=== PATIENT | female | born 1950 | race Caucasian/White ===

== ENCOUNTER 2020-04-06 14:51 | Emergency (ER) | payer OTHER ==
[~2020-04-06] VITALS: Ht 165.1 cm; Wt 97.1 kg
--- NOTE | ~2020-04-06 | P ---
[facility] [place] [address] PROCEDURE REPORT Name: RICARDA GARNER Room #: DEP [facility]#: [id number] Admission: 04/06/20 Attend Phys: Discharge: 04/06/20 Date of : 46 Report #: [id number] THIS REPORT FOR: cc: DIANNA - Deisy family physician/PCP DIANNA - No family physician/PCP Rian Kearney MD ~ CC: [facility] physician/PCP Lisa Martinez DATE OF SERVICE: 04/06/2020 WOUND CARE PROCEDURE NOTE PERSONAL PHYSICIAN: Vataff. CHIEF COMPLAINT: Right lower extremity hematoma. HISTORY OF PRESENT ILLNESS: This is a 69-year-old white female that we have been following at [facility] for approximately 2 weeks for hematoma on the medial right lower extremity calf region. This area had been initially evacuated approximately 2 weeks ago after the patient sustained a traumatic "bump" to her right leg while she was on Eliquis. The patient states she had no pain. The patient subsequently developed a hematoma requiring drainage. The patient now had a second hematoma that was over the anterior pretibial space that has started to spontaneously drain leading to the concern of the facility that it needed to have further drainage. Given the logistics, I was unable to go to the facility today, so the patient was brought to the Emergency Department for me to evaluate the patient and possibly drain the hematoma in the Emergency Department. The patient is agreeable to the debridement. Once again, has no associated pain. The patient denies also fevers or chills. The patient states she actually feels perfectly fine and is eager to get back to the skilled facility to resume her rehabilitation regimen. PREPROCEDURE DIAGNOSES: 1. Noninfected right lower extremity hematoma of the pretibial region. 2. Atrial fibrillation requiring anticoagulation. POSTPROCEDURE DIAGNOSES: 1. Noninfected right lower extremity hematoma of the pretibial region. 2. Atrial fibrillation requiring anticoagulation. DESCRIPTION OF PROCEDURE: After timeout was taken, verbal consent was obtained. The patient had evacuation of the right pretibial hematoma going through the spontaneous area of drainage using wall suction and a [employer] Media[employer] suction catheter. This was removed with significant amount of liquid hematoma as well as the area was irrigated and flushed with approximately 200 mL of saline to allow for [address] [address] PROCEDURE REPORT Name: RICARDA GARNER Room #: DEP [facility]#: [id number] Admission: 04/06/20 Attend Phys: Discharge: 04/06/20 Date of : 46 Report #: [id number] further irrigation. A total of 600 mL of hematoma was evacuated from the wall suction. No anesthesia was used given the patient has neuropathy and no associated pain. The patient tolerated the procedure quite well. Post-procedure, the patient had a saline moist packing placed within the anterior pretibial area as well as the right medial calf wound. This was then compressed with a Kerlix and Jae from toes to knee. The patient tolerated the procedure quite well. The patient will be returned back to her skilled facility where I will see her in 2 days and evaluate for further wound care orders. I have spoken with the food services director at the facility and told her to resume the wound care orders that we had previously started, which included packing the wounds with ____ moist gauze, covered with an ABD, Kerlix and Jae. We might possibly resume wound VAC therapy once I evaluate the patient in 2 days. The patient will be taken by transportation back to the facility in stable condition. By: [id number] Rian Kearney MD /nt
--- NOTE | ~2020-04-06 | EMS ---
[facility] [address] [place] [address] EMS Patient Care Report Name: RICARDA GARNER Room #: DEP [facility]#: [id number] Admission: 04/06/20 Attend Phys: Discharge: 04/06/20 Date of : 46 Report #: [id number] THIS REPORT FOR: //name// Report Transmitted: 04/06/2020 17:17 EMS Care Summary [facility] MED-ACT Incident [id number] @ 04/06/2020 14:02 Incident Location [address] [place] [address] Patient BALDOMERO MCKINNEY Female, 89 Years 1930-11-05 Patient Address [address] [place] [address] Patient History Hypertension (HTN),Hyperlipidemia,Hypothyroidism,Mild cognitive impairment, Patient Allergies Sulfa, Patient Medications ASA, Chief Complaint Mentation decline Disposition Transported No Lights/[place] Dispatch Reason Unconscious/Fainting Transported To [facility] Narrative M1140 was dispatched to the listed location for a code 1 syncope. Upon arrival to the facility, fire crew waited outside of the building due to their [address] [address] EMS Patient Care Report Name: RICARDA GARNER Room #: DEP [facility] [id number] Admission: 04/06/20 Attend Phys: Discharge: 04/06/20 Date of : 46 Report #: [id number] protocol. EMS continued in to the patient. On arrival to the patient staff stated that her mentation had been declining over the past couple days. Staff said that she has a cognitive disability but she had not been acting her normal . Staff stated that she had been having green and yellow discharge from her vagina and into her catheter. Staff stated that she had a fall back in January and broke her right shoulder and got shoulder surgery with "equipment." Staff said that she fell in March and broke it again. Doctors said that they removed the shoulder equipment and did not want to give that patient anymore surgery. Patient denied any chest pain, SOB, abd. pain, N/V/D, or right shoulder pain. When EMS would touch the patient she would scream out in pain. EMS attempted two IVs to give fluid for potential infection and high bG. Patient was very verbal when attempting IVs and would move extremities. Patients V/S were stable so only two IV attempts were made. Initial Vitals @14:27P: 118,SpO2: 78, @14:36P: 113,BP: 118/57,SpO2: 95, @14:21P: 116,R: 18,BP: 130/72,Pain: 0/10,GCS: 13,Temp: 98F,Glucose: 239,SpO2: 96,Revised Trauma: 12, @14:45P: 113,BP: 121/88,SpO2: 94, @14:27P: 113,SpO2: 96,[place] Suspected: false Assessments @14:15MENTAL:Confused,Person Oriented,SKIN:HEENT:Head/Face: No Abnormalities,LUNG SOUNDS:General: No Abnormalities,Left Upper: No Abnormalities,Right Upper: No Abnormalities,Left Lower: No Abnormalities,Right Lower: No Abnormalities,ABDOMEN:General: No Abnormalities,Left Upper: No Abnormalities,Right Upper: No Abnormalities,Left Lower: No Abnormalities,Right Lower: No Abnormalities,PELVIS//GI:Pelvis GUOther,EXTREMITIES:Right Arm: Other,Left Arm: No Abnormalities,PULSE:NEURO:No Abnormalities, Impression Altered Mental Status Procedures @14:2712-Lead ECGResponse: UnchangedSucceeded Timeline 14:00,Call Received 14:00,Psap Call 14:02,Dispatched 14:03,En Route 14:08,On Scene 14:14,At Patient 14:21,BP: 130/72 M,PULSE: 116,RR: 18 R,SPO2: 96 Ox,ETCO2: ,B,PAIN: [address] [address] EMS Patient Care Report Name: RICARDA GARNER [facility] [id number] Admission: 04/06/20 Attend Phys: Discharge: 04/06/20 Date of : 46 Report #: [id number] 0,GCS: 13, 14:27,BP: / M,PULSE: 118,RR: R,SPO2: 78 Ox,ETCO2: ,BG: ,PAIN: ,GCS: , 14:27,12-Lead ECG,Response: UnchangedSucceeded, 14:27,BP: / M,PULSE: 113,RR: R,SPO2: 96 Ox,ETCO2: ,BG: ,PAIN: ,GCS: , 14:35,Depart Scene 14:36,BP: 118/57 M,PULSE: 113,RR: R,SPO2: 95 Ox,ETCO2: ,BG: ,PAIN: ,GCS: , 14:45,BP: 121/88 M,PULSE: 113,RR: R,SPO2: 94 Ox,ETCO2: ,BG: ,PAIN: ,GCS: , 14:47,At Destination 15:15,Call Closed Disclaimer v1.1 Copyright 2020 [employer] This EMS Care Summary contains data elements from the applicable legal record (which may be displayed differently). It is designed to provide pertinent information for the following purposes: continuity of care, clinical quality, and state data reporting. The complete legal record is available to ED staff and administrators of the receiving hospital in ES's Patient Tracker. All data is provided "as is."
--- NOTE | ~2020-04-06 | EMS ---
[address] [address] EMS Patient Care Report Name: RICARDA GARNER Room #: REG LANIE Frances#: [id number] Admission: 04/06/20 Attend Phys: Discharge: Date of : 46 Report #: [id number] THIS REPORT FOR: //name// Report Transmitted: 04/06/2020 16:[address] [facility] MED-ACT Incident [id number] @ 04/06/2020 14:02 Incident Location [address] [place] [address] Patient BALDOMERO MCKINNEY Female, 89 Years 1930-11-05 Patient Address [address] [place] [address] Patient History Hypertension (HTN),Hyperlipidemia,Hypothyroidism,Mild cognitive impairment, Patient Allergies Sulfa, Patient Medications ASA, Chief Complaint Mentation decline Disposition Transported No Lights/[place] Dispatch Reason Unconscious/Fainting Transported To [facility] Narrative M1140 was dispatched to the listed location for a code 1 syncope. Upon arrival to the facility, fire crew waited outside of the building due to their [address] [address] EMS Patient Care Report Name: RICARDA GARNER Room #: REG [facility]#: [id number] Admission: 04/06/20 Attend Phys: Discharge: Date of : 46 Report #: [id number] protocol. EMS continued in to the patient. On arrival to the patient staff stated that her mentation had been declining over the past couple days. Staff said that she has a cognitive disability but she had not been acting her normal . Staff stated that she had been having green and yellow discharge from her vagina and into her catheter. Staff stated that she had a fall back in January and broke her right shoulder and got shoulder surgery with "equipment." Staff said that she fell in March and broke it again. Doctors said that they removed the shoulder equipment and did not want to give that patient anymore surgery. Patient denied any chest pain, SOB, abd. pain, N/V/D, or right shoulder pain. When EMS would touch the patient she would scream out in pain. EMS attempted two IVs to give fluid for potential infection and high bG. Patient was very verbal when attempting IVs and would move extremities. Patients V/S were stable so only two IV attempts were made. Initial Vitals @14:27P: 118,SpO2: 78, @14:36P: 113,BP: 118/57,SpO2: 95, @14:21P: 116,R: 18,BP: 130/72,Pain: 0/10,GCS: 13,Temp: 98F,Glucose: 239,SpO2: 96,Revised Trauma: 12, @14:45P: 113,BP: 121/88,SpO2: 94, @14:27P: 113,SpO2: 96,MD Suspected: false Assessments @14:15MENTAL:Confused,Person Oriented,SKIN:HEENT:Head/Face: No Abnormalities,LUNG SOUNDS:General: No Abnormalities,Left Upper: No Abnormalities,Right Upper: No Abnormalities,Left Lower: No Abnormalities,Right Lower: No Abnormalities,ABDOMEN:General: No Abnormalities,Left Upper: No Abnormalities,Right Upper: No Abnormalities,Left Lower: No Abnormalities,Right Lower: No Abnormalities,PELVIS//GI:Pelvis GUOther,EXTREMITIES:Right Arm: Other,Left Arm: No Abnormalities,PULSE:NEURO:No Abnormalities, Impression Altered Mental Status Procedures @14:2712-Lead ECGResponse: UnchangedSucceeded Timeline 14:00,Call Received 14:00,Psap Call 14:02,Dispatched 14:03,En Route 14:08,On Scene 14:14,At Patient 14:21,BP: 130/72 M,PULSE: 116,RR: 18 R,SPO2: 96 Ox,ETCO2: ,B,PAIN: [address] [place] [address] EMS Patient Care Report Name: RICARDA GARNER Room #: VICKIE Frances#: [id number] Admission: 04/06/20 Attend Phys: Discharge: Date of : 46 Report #: [id number] 0,GCS: 13, 14:27,BP: / M,PULSE: 118,RR: R,SPO2: 78 Ox,ETCO2: ,BG: ,PAIN: ,GCS: , 14:27,12-Lead ECG,Response: UnchangedSucceeded, 14:27,BP: / M,PULSE: 113,RR: R,SPO2: 96 Ox,ETCO2: ,BG: ,PAIN: ,GCS: , 14:35,Depart Scene 14:36,BP: 118/57 M,PULSE: 113,RR: R,SPO2: 95 Ox,ETCO2: ,BG: ,PAIN: ,GCS: , 14:45,BP: 121/88 M,PULSE: 113,RR: R,SPO2: 94 Ox,ETCO2: ,BG: ,PAIN: ,GCS: , 14:47,At Destination 15:15,Call Closed Disclaimer v1.1 Copyright 2020 [employer] This EMS Care Summary contains data elements from the applicable legal record (which may be displayed differently). It is designed to provide pertinent information for the following purposes: continuity of care, clinical quality, and state data reporting. The complete legal record is available to ED staff and administrators of the receiving hospital in [employer]'s Patient Tracker. All data is provided "as is."
[2020-04-06 17:55] VITALS: BP 135/65
== END 2020-04-06 17:57 | disposition home or self-care (01) ==
LOC: ER 14:51
DX: L08.89 Other specified local infections of the skin and subcutaneous tissue (principal); I10 Essential (primary) hypertension; E78.5 Hyperlipidemia, unspecified; I48.91 Unspecified atrial fibrillation; K21.9 Gastro-esophageal reflux disease without esophagitis; F41.1 Generalized anxiety disorder; Z98.890 Other specified postprocedural states; Z88.0 Allergy status to penicillin; Z91.013 Allergy to seafood; Z79.01 Long term (current) use of anticoagulants

== ENCOUNTER → 2020-06-13 | Emergency (ER) | payer OTHER ==
[~2020-06-13] VITALS: Ht 157.5 cm; Wt 97.1 kg
--- NOTE | ~2020-06-13 | EMS ---
[address] [address] EMS Patient Care Report Name: RICARDA GARNER Room #: REG LANIE Frances#: [id number] Admission: 06/13/20 Attend Phys: Discharge: Date of : 46 Report #: [id number] THIS REPORT FOR: //name// Report Transmitted: 06/13/2020 13:43 EMS Care Summary [facility] MED-ACT Incident [id number] @ 06/13/2020 11:36 Incident Location [address] [place] [address] Patient RICARDA GARNER Female, 69 Years 1950 Patient Address [address] [place] [address] Patient History Hypertension (HTN),Stroke/CVA,Hyperlipidemia,Gastro-Esophageal Reflux Disease (GERD),Cardiac Condition - Other,Urinary Tract Infection (UTI),Anxiety,Atrial Fibrillation,Anemia,Pressure Ulcer,Dysphagia, Patient Allergies Penicillin allergy, Patient Medications Spironolactone, Norvasc, Ferrous Sulfate, Buspirone, Levothyroxine, Potassium, Gabapentin, Atorvastatin, Melatonin, Clotrimazole, Doxycycline, Neurontin, Lasix, Oxycodone, Aspirin, Chief Complaint possible leg infection Disposition Transported No Lights/[place] Dispatch Reason Sick Person Transported To [address] [address] EMS Patient Care Report Name: RICARDA GARNER Room #: REG LANIE Frances#: [id number] Admission: 06/13/20 Attend Phys: Discharge: Date of : 46 Report #: [id number] Narrative Medic 1149 arrived on scene to find the patient resting comfortably in her bed. The patient was awoken by EMS and did not know why EMS was called. She said that she did not want to go to the hospital. EMS found a nurse and she informed EMS that the patient has been running a low-grade fever with a temp of around 100 today and that she has been more lethargic than usual. EMS obtained a temp of 98.1 multiple times. Staff informed EMS that they have not given medication to the patient today to lower her temp, nor has she taken her normal daily meds yet. Staff would like the patient to be seen in the ED for a possible infection to her leg and to see if her wounds have gone deeper into her leg. The patient had no complaints of pain. After EMS talked with the patient and assessed vitals, staff walked into the room and talked with the patient about being seen in the ED. The patient then agreed. EMS moved the patient to the cot via draw sheet. The patient was secured to the cot and moved to the ambulance for secondary assessment. The patient had no new complaints during secondary assessment. EMS established an IV and monitored the patient throughout transport. Upon arrival to the ED EMS gave report to ED staff. Medic 1149 clear. Initial Vitals @11:53P: 84,BP: 102/65,Glucose: 106, @11:58P: 82,BP: 112/67,SpO2: 91, @11:45P: 83,R: 16,BP: 98/61,Pain: 0/10,GCS: 15,Temp: 98.1F,SpO2: 96,Revised Trauma: 12, Assessments @11:43MENTAL:Other,Person Oriented,Place Oriented,Event Oriented,Time Oriented,SKIN:Hot,HEENT:Head/Face: No Abnormalities,LUNG SOUNDS:General: No Abnormalities,ABDOMEN:General: No Abnormalities,PELVIS//GI:EXTREMITIES:Right Leg: Other,Right Leg: Edema,Left Leg: Edema,Capillary Refill: Left Upper: < 2 Sec,Left Arm: No Abnormalities,Right Arm: No Abnormalities,PULSE:Radial: 2+ Normal,NEURO:No Abnormalities, Impression Skin infection Procedures @11:42Surgical Mask on PatientResponse: Unchanged@11:42ALS AssessmentResponse: UnchangedSucceeded@11:54Saline Lock 10cc (20 ga) Site: Hand-LeftResponse: UnchangedSucceeded Timeline 11:33,Call Received 11:33,Psap Call 11:36,Dispatched [address] [address] EMS Patient Care Report Name: RICARDA GARNER Room #: REG LAINE Frances#: [id number] Admission: 06/13/20 Attend Phys: Discharge: Date of : 46 Report #: [id number] 11:36,En Route 11:38,On Scene 11:41,At Patient 11:42,ALS Assessment,Response: UnchangedSucceeded, 11:42,Surgical Mask on Patient,Response: Unchanged 11:45,BP: 98/61 M,PULSE: 83,RR: 16 R,SPO2: 96 Ox,ETCO2: ,BG: ,PAIN: 0,GCS: 15, 11:53,BP: 102/65 M,PULSE: 84,RR: R,SPO2: Ox,ETCO2: ,B,PAIN: ,GCS: , 11:54,Saline Lock 10cc 20 ga Site: Hand-Left,Response: UnchangedSucceeded, 11:56,Depart Scene 11:58,BP: 112/67 M,PULSE: 82,RR: R,SPO2: 91 Ox,ETCO2: ,BG: ,PAIN: ,GCS: , 12:05,At Destination 12:25,Call Closed Disclaimer v1.1 Copyright 2020 [employer] This EMS Care Summary contains data elements from the applicable legal record (which may be displayed differently). It is designed to provide pertinent information for the following purposes: continuity of care, clinical quality, and state data reporting. The complete legal record is available to ED staff and administrators of the receiving hospital in [employer]'s Patient Tracker. All data is provided "as is."
[2020-06-13 12:54] LABS: ABSOLUTE NEUTROPHILS 13.1 thou/uL (1.4-8.2); BASOPHILS 0.6 % (0.0-2.0); EOSINOPHILS 0.2 % (0.0-3.0); HEMATOCRIT 32.9 % (37.0-47.0); HEMOGLOBIN 10.2 gm/dL (12.0-15.0); LYMPHOCYTES 5.6 % (24.0-44.0); MCH 26.9 pg (26.0-34.0); MCHC 31.1 g/dL (28.0-37.0); MCV 86.5 fL (80.0-100.0); MONOCYTES 6.1 % (1.0-8.0); PLATELET COUNT 453 thou/uL (150-400); POLYS 87.5 % (36.0-66.0); RBC 3.81 mil/uL (4.20-5.00); WBC 14.9 thou/uL (4.0-11.0)
[2020-06-13 12:58] LABS: CALCIUM 8.9 mg/dL (8.5-10.1); CREATININE 0.6 mg/dL (0.6-1.0)
[2020-06-13 13:03] LABS: ALBUMIN 2.4 g/dL (3.4-5.0); TOTAL BILIRUBIN 0.4 mg/dL (0.2-1.0); TOTAL PROTEIN 7.1 g/dL (6.4-8.2)
[2020-06-13 17:43] VITALS: BP 99/52
== END ==
LOC: ER 12:11
PROVIDERS: Nurse Practitioner
DX: S81.801A Unspecified open wound, right lower leg, initial encounter (principal); L03.115 Cellulitis of right lower limb; D72.829 Elevated white blood cell count, unspecified; I10 Essential (primary) hypertension; E78.5 Hyperlipidemia, unspecified; I48.91 Unspecified atrial fibrillation; K21.9 Gastro-esophageal reflux disease without esophagitis; Z88.0 Allergy status to penicillin; Z91.013 Allergy to seafood; X58.XXXA Exposure to other specified factors, initial encounter; Y93.89 Activity, other specified; Y92.89 Other specified places as the place of occurrence of the external cause; Y99.8 Other external cause status

== ENCOUNTER 2021-05-10 14:22 | Inpatient (IN) | payer OTHER ==
[~2021-05-10] VITALS: Ht 162.6 cm; Wt 71.9 kg
[2021-05-10 14:22] VITALS: BP 143/81
[2021-05-10 14:57] LABS: BASOPHILS 0.4 % (0.0-2.0); EOSINOPHILS 0.9 % (0.0-3.0); HEMATOCRIT 39.6 % (37.0-47.0); LYMPHOCYTES 4.1 % (24.0-44.0); MCH 30.3 pg (26.0-34.0); MCHC 32.7 g/dL (28.0-37.0); MCV 92.8 fL (80.0-100.0); MONOCYTES 8.6 % (1.0-8.0); PLATELET COUNT 385 thou/uL (150-400); RBC 4.27 mil/uL (4.20-5.00); RDW 14.1 % (10.5-14.5); WBC 16.3 thou/uL (4.0-11.0)
[2021-05-10 15:15] LABS: APTT 54.7 Seconds (24.5-32.8); INR 3.57; PROTIME 36.6 Seconds (10.5-12.1)
[2021-05-10 15:21] LABS: CALCIUM 9.2 mg/dL (8.5-10.1); CREATININE 0.7 mg/dL (0.6-1.0); POTASSIUM 5.2 mmol/L (3.5-5.1)
[2021-05-10 15:26] LABS: ALBUMIN 3.1 g/dL (3.4-5.0); TOTAL BILIRUBIN 0.4 mg/dL (0.2-1.0); TOTAL PROTEIN 7.5 g/dL (6.4-8.2)
[2021-05-10 17:17] VITALS: BP 102/52
--- NOTE | 2021-05-10 19:19 | NUR ---
pt arrived to floor via stretcher, alert and oriented x4 with extreme episodes of agitation and anxiety. Complains of pain, medicated per orders. Drainage and swelling to bilateral lower extremities. Patient oriented to the room, call harvey and belongings in reach. Educated on the unit processes. All questions answered at this time.
[2021-05-10 20:28] VITALS: BP 117/68
--- NOTE | 2021-05-11 03:04 | NUR ---
PT CARE ASSUMED WITH PT IN BED AT 1900.PT IS A/O X4.PT IS ON BEDREST AND USES A W/C AT HOME AND LIVES ALONE PER PT.PT IS ON ROOM AIR.ADMISSION DONE ,PICTURES TAKEN AND TORREZ INSERTED PER DR CHIN.PT VERY ANXIOUS AND AGITATED AND CRYING .PT REORIENTED AND PLAN OF CARE AND MEDS EXPLAINED TO PT.WOUND DRESSING DONE AND WRAPPED .PT ADMITTED WITH C/O BLE CELLULITIS PAINFUL,RED AND DRAINING.IV ACCESS ON LT AC SL.WILL CONTINUE TO MONITOR PER POC
[2021-05-11 05:07] LABS: ABSOLUTE NEUTROPHILS 11.5 thou/uL (1.4-8.2); BASOPHILS 0.5 % (0.0-2.0); EOSINOPHILS 2.3 % (0.0-3.0); HEMATOCRIT 32.6 % (37.0-47.0); LYMPHOCYTES 4.7 % (24.0-44.0); MCH 30.8 pg (26.0-34.0); MCHC 33.4 g/dL (28.0-37.0); MCV 92.2 fL (80.0-100.0); MONOCYTES 11.4 % (1.0-8.0); PLATELET COUNT 354 thou/uL (150-400); POLYS 81.1 % (36.0-66.0); RBC 3.54 mil/uL (4.20-5.00); RDW 13.8 % (10.5-14.5); WBC 14.2 thou/uL (4.0-11.0)
[2021-05-11 05:15] LABS: HEMOGLOBIN 10.9 gm/dL (12.0-15.0)
[2021-05-11 05:31] LABS: CALCIUM 8.3 mg/dL (8.5-10.1); CREATININE 0.6 mg/dL (0.6-1.0)
[2021-05-11 05:32] LABS: MAGNESIUM 1.7 mg/dL (1.8-2.4)
[2021-05-11 05:53] LABS: POTASSIUM 3.7 mmol/L (3.5-5.1)
[2021-05-11 07:55] VITALS: BP 101/57
--- NOTE | 2021-05-11 08:33 | NUR ---
Chart review, amaya visited with lilly at bedside, she was getting ready to eat breakfast, offered to come back and she said it was ok to visit now. Intro to cm and dcp. Live home alone, independent, manage own medication. Have new walk in shower and shower bench. have walker and wheel chair. have support from my brothers and sisters. cook. have life alert necklace. do not currently drive but going to start drive again. hh in past but can not remember who it was with. Been to [facility] in past per lilly. She is agree able to hh or rehab in needed at dc but would prefer going home. Will cont following as needed for dc needs.
[2021-05-11] MEDS ORDERED: LEVOTHYROXINE50 MC1 PO (10:03)
[2021-05-11] MEDS ORDERED: APAP W/CODEINE1 TA2 PO (10:04)
[2021-05-11] MEDS ORDERED: WARFARIN SODIUM1 MG PO (10:05)
[2021-05-11] MEDS ORDERED: DULOXETINE HCL30 MG PO (10:06)
[2021-05-11] MEDS ORDERED: SPIRONOLACTONE25 MG PO (10:06)
[2021-05-11] MEDS ORDERED: FUROSEMIDE 40 M40 MG PO (10:06)
[2021-05-11] MEDS ORDERED: GABAPENTIN100 MG PO (10:07)
[2021-05-11] MEDS ORDERED: KLOR-CON M2020 MEQ PO (10:16)
[2021-05-11] MEDS ORDERED: NORVASC5 M1 PO (10:16)
[2021-05-11] MEDS ORDERED: TRAZODONE HCL100 MG PO (10:17)
[2021-05-11] MEDS ORDERED: LIPITOR40 MG PO (10:17)
[2021-05-11] MEDS ORDERED: VITAMIN C1000 MG PO (10:31)
[2021-05-11] MEDS ORDERED: MELATONIN5 M4 PO (10:31)
[2021-05-11] MEDS ORDERED: VOLTAREN ARTHRI20 GM TOP (10:32)
[2021-05-11] MEDS ORDERED: WARFARIN SODIUM5 MG PO (10:47)
--- NOTE | 2021-05-11 11:11 | NUR ---
ASSUMED PT CARE THIS AM. PT A&OX3, ABLE TO MAKE NEEDS KNOWN. PATIENT REPORTS PAIN IN THE LEFT SIDE OF THE PATIENTS NECK, RESPONDS WELL TO PAIN MEDICATION GIVEN PER EMAR. PATIENT ANXIOUS WITH CARES. TORREZ CATHETER IN PLACE, CALL LIGHT WITHIN REACH. PATIENT IS ON ROOM AIR. DRESSINGS TO LOWER EXTREMETIES ARE INTACT. IV REMAINS PATENT. MEDICATIONS TAKEN WITHOUT ISSUE. PATIENT REPORTS NO NUMBNESS OR TINGLING. FALL PRECAUTIONS ARE IN PLACE, CALL LIGHT WITHIN REACH.
[2021-05-11 17:36] VITALS: BP 99/58
[2021-05-11 20:12] VITALS: BP 102/69
[2021-05-12 01:55] LABS: HEMATOCRIT 31.2 % (37.0-47.0); HEMOGLOBIN 10.3 gm/dL (12.0-15.0); MCH 30.6 pg (26.0-34.0); MCV 92.9 fL (80.0-100.0); RBC 3.35 mil/uL (4.20-5.00); RDW 14.2 % (10.5-14.5); WBC 9.8 thou/uL (4.0-11.0)
[2021-05-12 02:01] LABS: CALCIUM 8.1 mg/dL (8.5-10.1); CREATININE 0.7 mg/dL (0.6-1.0); POTASSIUM 3.6 mmol/L (3.5-5.1)
[2021-05-12 02:04] LABS: INR 2.42; PROTIME 25.3 Seconds (10.5-12.1)
--- NOTE | 2021-05-12 03:46 | NUR ---
ASSUMED PT CARE AT 1999. PT IS ALERT AND ORIENTED X4. DRS ON BLE IS C/D/I WITH NO SIGN OF DRAINAE, PT CAN BE REALLY ANXIOUS AND YELLS OUT IN THE HALLWAY EVEN AFTER BEING EDUCATED ON THE USE OF CALL LIGHT. PAIN WAS MANAGED BY PRN MEDS. PT TOLERATING RA. PT HAS TORREZ IN PLACE WHICH IS PATENT. NO VISIBLE SIGN OF DISTRESS NOTED. FALL PRECAUTIONS IN PLACE. WILL CONTINUE TO MONITOR.
--- NOTE | 2021-05-12 14:43 | NUR ---
Discussed during los with the hospitalist, possible will need skilled rehab at dc. Kimberlee had mentioned [facility] if she needed rehab. Cm spoke with her sister Shantel via phone call, and she agrees if needed [facility] would be fine if they have openings. Noted per therapy on going assessment, post-acute or home health. Will cont. following as needed for dc needs.
--- NOTE | 2021-05-12 15:05 | NUR ---
ASSUMED CARE OF PATIENT AT SHIFT CHANGE. ASSESSMENT CHARTED. MEDICATIONS ADMINISTERED PER EMAR. VSS. PATIENT IS ALERT TO SELF, TIME & PLACE AND GOES IN OUT OF CONFUSION PERTAINING TO SITUATION. PATIENT HAS BEEN VERY ANXIOUS AND TEARFUL THROUGHOUT ENTIRE SHIFT. PRN LORAZEPAM ADMINISTERED; PATIENT NOTED BEING CALM AND NAPPING AFTER ADMINISTRATION. PATIENT WAS ABLE TO TOLERATE WOUND CARE CHANGE BECAUSE OF THE MEDICATIONS GIVEN PRIOR (NORCO & ATIVAN). TORREZ REMAINS IN PLACE AND PATENT; PATIENT STILL NOT TOLERATING WORKING WITH PT/OT. VOICING CONSTANT PAIN WHILE AWAKE. INFECTIOUS DISEASE DOCTOR ROUNDED ON PATIENT; PATIENT WILL CONTINUE ON ABX THX. LOWER EXTREMITIES ELEVATED; FREQUENT CHECKS & FREQUENT REPOSITIONING ON PATIENT. PATIENT USING CALL LIGHT BUT ALSO SCREAMING AND CRYING FOR HELP. PROVIDER UPDATED ON PATIENT STATUS. WILL CONTINUE TO MONITOR AND FOLLOW PLAN OF CARE
[2021-05-12 15:29] VITALS: BP 99/49
[2021-05-12 21:21] VITALS: BP 105/46
--- NOTE | 2021-05-13 03:47 | NUR ---
ASSUMED CARE OF PT AT SHIFT CHANGE. PT WAS DROWSY THIS SHIFT BUT IS ORIENTED X4. PT DENIED PAIN, NAUSEA OR SOA. ASSESSMENT CHARTED. PT TOOK HS MEDS WHOLE WITH WATER. VSS AND NO S/S OF ACUTE DISTRESS. WILL CONTINUE TO MONITOR FOR CHANGES.
[2021-05-13 05:57] LABS: HEMATOCRIT 31.9 % (37.0-47.0); HEMOGLOBIN 10.5 gm/dL (12.0-15.0); MCH 30.9 pg (26.0-34.0); MCHC 33.1 g/dL (28.0-37.0); MCV 93.4 fL (80.0-100.0); RBC 3.41 mil/uL (4.20-5.00); RDW 14.2 % (10.5-14.5); WBC 7.4 thou/uL (4.0-11.0)
[2021-05-13 06:21] LABS: INR 1.45; PROTIME 15.5 Seconds (10.5-12.1)
[2021-05-13 06:23] LABS: CALCIUM 8.5 mg/dL (8.5-10.1); CREATININE 0.6 mg/dL (0.6-1.0); POTASSIUM 3.5 mmol/L (3.5-5.1)
[2021-05-13 07:16] VITALS: BP 112/68
[2021-05-13 15:45] VITALS: BP 115/71
--- NOTE | 2021-05-13 18:11 | NUR ---
ASSUMED CARE OF PATIENT AT SHIFT CHANGE. PATIENT AWOKE AT APPROX. 0900 CRYING AND DEMANDING PAIN MEDICATION. PATIENT REMAINS A&OX3-4 WITH FORGETFULNESS & CONFUSION. PATIENT REPOSITIONED FREQUENTLY AND GIVEN PRN PAIN MEDS Q4HRS WELL VOLTEREN CREAM. PATIENT IS VERY ANXOIUS, DR. YESENIA BULLARD HAS NOT ROUNDED ON PATIENT; PROVIDER ORDERED PRN HALDOL FOR AGITATION. WOUND CARE COMPLETE AT 1500. BLE ELEVATED. FALL PRECAUTIONS IN PLACE. WILL CONTINUE TO MONITOR AND FOLLOW PLAN OF CARE
[2021-05-13 20:12] VITALS: BP 94/63
--- NOTE | 2021-05-14 03:48 | NUR ---
Assumed pt care at 1900. A/OX4,anxious/restless and crying on initial encounter but calm down later with 1:1 reassurance. VSS. C/o pain to BLE,medicated with Franklin with relief reported. IV on LAC infiltrated,new IV inserted on LFA with one attempt. DSGs to BLE C/D/I,immobilized on pillows. Charles patent to DD with yellow urine noted. Resting quietly w/o any distress noted,will continue to monitor pt. Fall precautions in place
[2021-05-14 05:45] LABS: HEMATOCRIT 32.3 % (37.0-47.0); HEMOGLOBIN 10.5 gm/dL (12.0-15.0); MCH 30.1 pg (26.0-34.0); MCHC 32.4 g/dL (28.0-37.0); MCV 92.9 fL (80.0-100.0); RBC 3.48 mil/uL (4.20-5.00); WBC 6.3 thou/uL (4.0-11.0)
[2021-05-14 05:50] LABS: CALCIUM 8.7 mg/dL (8.5-10.1); CREATININE 0.7 mg/dL (0.6-1.0); POTASSIUM 3.7 mmol/L (3.5-5.1)
[2021-05-14 05:53] LABS: INR 1.23; PROTIME 13.3 Seconds (10.5-12.1)
[2021-05-14 07:43] VITALS: BP 101/56
--- NOTE | 2021-05-14 14:50 | NUR ---
INITIALLY THIS AM WAS PAYMENT COLLECTOR LIGHT Q 5-10 MINUTES WITH MULTIPLE REQUESTS-RANG FOR PAIN MEDICATION 4 TIMES IN 20 MINUTE PERIOD DESPITE BEING INFORMED RN WAS WITH A PT WHO HAD ELEVATED GL-SOCKIUERH-[id number] MOOD-ASKING TO BE MOVED "3-4 INCHES" OVER IN BED AND REQUIRED SEVERAL ALTERNATIVE MENU CHOICES AND MULTIPLE CALLS TO KITCHEN WAS UNHAPPY WITH BREAKFAST PROVIDED. REFUSES TO GET UP OUT OF BED DESPITE PROMPTING. TORREZ CATH PATENT DRAINING CLEAR YELLOW URINE. NORCO 5/325 MG GIVEN PO PRN AT 0930 AND REPEATED AT 1400 PER REQUEST FOR BILAT LE PAIN RATED A 6 ON 1-10 SCALE. APPETTITE IS GOOD-LUNGS CLEAR-NO COUGH OR SOA NOTED OR REPORTED, BS ACTIVE X4.
[2021-05-14 17:03] VITALS: BP 113/65
[2021-05-14 20:10] VITALS: BP 135/70
--- NOTE | 2021-05-15 03:49 | NUR ---
ASSUMED PT CARE AT 1910. PT IS ALERT AND ORIENTED X4 . PT IS PLEASANT AND COOPERATIVE. PT REQUESTED TO BE GIVEN SCHEDULED MEDS LATE. PT C/O PAIN WHICH WAS MANAGED BY PRN PAIN MEDS. PT HAS DRS TO BLE WHICH ARE C/D/I. PT DID NOT VERBALIZE ANY OTHER CONCERNS AND NO VISIBLE SIGN OF DISTRESS WAS NOTED. VS ARE WITHIN NORMAL RANGE. TORREZ IS IN PLACE. FALL PRECAUTIONS IN PLACE. ESTEPHANIA CONTINUE TO MONITOR.
[2021-05-15 05:52] LABS: CALCIUM 8.7 mg/dL (8.5-10.1); CREATININE 0.6 mg/dL (0.6-1.0); POTASSIUM 3.9 mmol/L (3.5-5.1)
[2021-05-15 05:55] LABS: INR 1.14; PROTIME 12.4 Seconds (10.5-12.1)
[2021-05-15 06:03] LABS: HEMATOCRIT 31.9 % (37.0-47.0); HEMOGLOBIN 10.6 gm/dL (12.0-15.0); MCH 30.8 pg (26.0-34.0); MCHC 33.2 g/dL (28.0-37.0); RBC 3.43 mil/uL (4.20-5.00); WBC 5.9 thou/uL (4.0-11.0)
[2021-05-15 08:29] VITALS: BP 100/56
--- NOTE | 2021-05-15 16:04 | NUR ---
Returned phone call to her sister ching. She had question about if she was going to need rehab, if she was seen by royer, and lilly said she wants to go to [facility] rehab per ching. Education that would pass on information to CM team social work and bedside nurse. Cm education with sister that [facility] has acute rehab if that's the level of rehab she could benefit from prior to dc home.
--- NOTE | 2021-05-15 16:38 | NUR ---
5N TO BE CONSULTED FOR ASSESSMENT FOR POSSIBLE ADMISSION. DR. PATTERSON CONSULTED RELATED TO ANXIETY. SHE ATTEMPTED TO VISIT WITH PT BUT PT WASN'T RECEPTIVE. SHE WILL VISIT AGAIN TOMORROW. PT'S DTR UPDATED. CM FOLLOWING REGARDING DC PLANNING.
[2021-05-15 19:50] VITALS: BP 124/69
--- NOTE | 2021-05-15 20:19 | NUR ---
PATIENT ALERT/ORIENTED X2-3. FORGETFUL AT TIMES. HAS MOMENTS OF ANXIETY. SHE WILL PUSH HER CALL LIGHT AND IF NOT ANSWERED WITHIN 30 SECONDS APPROXIMATELY SHE WILL START SCREAMING AND CRYING. SETTLES DOWN QUICKLY ONCE ENTERING THE ROOM. UPDATED HER SISTER (MATT) ON PATIENT STATUS, STATES THAT SHE HAS STRUGGLED WITH ANXIETY AND THIS IS NOT NEW FOR HER. DRESSING CHANGES DONE TO BILATERAL LOWER EXTREMITIES. BOTH DRESSINGS SATURATED IN BLOOD AND VERY PAINFUL FOR THE PATIENT. UPDATED DR. FELIZ ON WOUND STATUS. WOUND CARE DOCTOR ROUNDED. ORDERS FOR IV PAIN MEDICATIONS FOR DRESSING CHANGES. WILL NEED PICTURES TAKEN WITH NEXT DRESSING CHANGE. THERAPY WORKED WITH PATIENT. PLAN TO DISCHARGE TO REHAB WHEN MEDICALLY READY.
--- NOTE | 2021-05-16 05:04 | NUR ---
ASSUMED PT CARE THIS EVENING. PT IS FRUSTRATED AND ANXIOUS ABOUT WOUND CARE TO BLE; AND DOESS NOT THINK THE WOUNDS ARE HEALING. PT REQUESTE FOR PM MEDS BE GIVEN AT 2200. PT YELLS AND CRIES EVEN AFTER CALL LIGHT HAS BEEN ANSWERED AND NEEDS HAS BEEN MET. PT HAS DRSG TO BLE WHICH ARE C/D/I. FFOLEY IS IN PLACE. PT TOLERATING RA. FALL PRECAUTIONS IN PLACE. WILL CONTINUE TO MONITOR.
[2021-05-16 05:49] LABS: HEMATOCRIT 32.1 % (37.0-47.0); HEMOGLOBIN 10.5 gm/dL (12.0-15.0); MCH 29.9 pg (26.0-34.0); MCHC 32.6 g/dL (28.0-37.0); MCV 91.7 fL (80.0-100.0); RBC 3.51 mil/uL (4.20-5.00); RDW 14.4 % (10.5-14.5); WBC 8.7 thou/uL (4.0-11.0)
[2021-05-16 05:58] LABS: INR 1.22; PROTIME 13.2 Seconds (10.5-12.1)
[2021-05-16 06:16] LABS: CALCIUM 8.4 mg/dL (8.5-10.1); CREATININE 0.5 mg/dL (0.6-1.0); POTASSIUM 3.8 mmol/L (3.5-5.1)
[2021-05-16 07:52] VITALS: BP 119/58
--- NOTE | 2021-05-16 11:18 | NUR ---
5N CONSULT RECEIVED. Pt SEEN BY REAGAN ALMONTE NP. PER REAGAN, Pt FIRMLY STATED THAT SHE WANTED TO GO TO [facility] FOR REHAB. CASE MGMT NOTIFIED. 5N WILL REMAIN AVAILABLE REHAB OPTION IF Pt APPROPRIATE AND AGREEABLE.
--- NOTE | 2021-05-16 11:32 | NUR ---
5N LIAISON VISITED WITH PT AND SHE INDICATED THAT SHE WAS ANNOYED THAT SHE WAS VISITING SHE WANTED TO GO TO [facility] ACUTE REH[facility]. CM CALLED [facility] AND SPOKE WITH RICARDA IN ADMISSIONS THERE. CM FAXED REFERRAL FOR THEM TO REVIEW FOR POSSIBLE ADMISSION. CM INDICATED THAT PT IS LIKELY DC READY TODAY. CM AWAITING RESPONSE.
--- NOTE | 2021-05-16 17:13 | NUR ---
ASSUMED PT CARE THIS AM. PT A&OX3-4 THIS SHIFT. PATIENT MAKES SOME NEEDS KNOWN, BUT WILL YELL OUT AT STAFF WITHOUT CALLING. DRESSINGS CHANGED, HOSPITLAIST AND WOUND CARE TEAM OBSERVED WOUNDS THIS DAY. PATIENT REMAINS CONTINENT. PAITENT IS ON ROOM AIR. PATIENT UP WITH ASSIST. MEDICATIONS TAKEN WITHOUT ISSUE. FALL PRECAUTIONS ARE IN PLACE, CALL LIGHT WITHIN REACH.
[2021-05-16 19:39] VITALS: BP 121/76
[2021-05-16 19:59] VITALS: BP 158/66
--- NOTE | 2021-05-17 03:58 | NUR ---
Pt. rested quietly during the night when checked on during frequent rounds. She will yell at times when she needs something. Po pain med given for c/o bilateral lower leg pain (see emar) with some relief noted. Bed alarm is on.
[2021-05-17 04:59] LABS: HEMATOCRIT 32.6 % (37.0-47.0); HEMOGLOBIN 10.7 gm/dL (12.0-15.0); MCH 30.2 pg (26.0-34.0); MCHC 32.9 g/dL (28.0-37.0); MCV 91.6 fL (80.0-100.0); RBC 3.56 mil/uL (4.20-5.00); RDW 13.8 % (10.5-14.5); WBC 11.5 thou/uL (4.0-11.0)
[2021-05-17 05:24] LABS: CALCIUM 8.7 mg/dL (8.5-10.1); CREATININE 0.5 mg/dL (0.6-1.0); POTASSIUM 3.8 mmol/L (3.5-5.1)
[2021-05-17 05:34] LABS: INR 1.12; PROTIME 12.1 Seconds (10.5-12.1)
[2021-05-17 07:36] VITALS: BP 102/64
--- NOTE | 2021-05-17 11:25 | NUR ---
Nutrition: Pt seen for LOS. Admitted with BLE cellulitis, venous insufficiency. PMH reviewed. Pt reports UBW 170# and denies weight loss. Recent weight of 158# per pt is error. RECommend when pt out of bed, zero and re-weigh. PO intake is fair, averaging about 40% of meals. Pt able to order meals and tries to eat protein foods first. Agreeable to ensure enlive daily to assist with wounds and due to suboptimal intake. On B12 supplementation. Plan D/C to facility. Consider low nutrition risk with interventions in place.
[2021-05-17] MEDS ORDERED: HYDROCODON-ACE1 EAC7 PO (13:37)
[2021-05-17] MEDS ORDERED: CEPHALEXIN500 MG PO (13:38)
--- NOTE | 2021-05-17 14:39 | NUR ---
CARE TEAM INDICATED THAT PT IS MEDICALLY STABLE TO DC TO 5N ACUTE REHAB THIS DAY. PT IS AWARE AND AGREEABLE. CM NOTIFIED PT'S SISTER OBEY AT . PT TO DC TO ROOM 511 ON 5N. NO OTHER CM INTERVENTION INDICATED. CASE CLOSED.
--- NOTE | 2021-05-17 15:12 | NUR ---
TOOK ON CARE OF PT AROUND 0700. PT CONTINUED TO REMAIN EXTREMELY ANXIOUS THROUHGOUT THE DAY. CONSOLED HER CONSISTENTLY AND ATTEMPTED TO CONTROL PAIN WITH ORAL AND IV MEDICATION. PT HAS EXTREME ANXIETY AND UNRELEIVED BY EDUCATION AND CONSTANT REASSUREMENT. GAVE HALDOL PRN 1X WITH ADEQUATE STRESS RELIEF, ALLOWING HER TO REST. PATIENTS VITALS WERE STABLE THROUGHOUT THE DAY. ATTEMPTED TO ALLOW WOUND CARE TO VIEW BLE CELLULITIS BUT WAS UNREACHABLE. DRESSING CHANGES BILATERALLY AROUN 1400, LEFT LEG WAS PICTURED BUT WAS UNABLE TO PHOTOGRAPH R DUE TO CAMERA MALFUNCTIONS AND NO ALTERNATE. TRANSFERRING TO REHAB NOW.
--- NOTE | 2021-05-18 08:50 | HC ---
[facility] [place] [address] [place] [address] CONSULTATION Name: RICARDA GARNER Room #: 459-P [facility] IN M.R.#: [id number] Admission: 05/10/21 Attend Phys: Sebas Dumont MD Discharge: 05/17/21 Date of : 46 Report #: [id number] THIS REPORT FOR: cc: Neil Block MD, Scott C. MD Stephens, Thad A. MD ~ DATE OF SERVICE: 05/11/2021 WOUND CARE CONSULTATION PERSONAL PHYSICIAN: Neil Block. CHIEF COMPLAINT: Bilateral lower extremity cellulitis. HISTORY OF PRESENT ILLNESS: This is a 70-year-old white female, who was admitted through the Emergency Department for increasing redness, swelling and drainage from her lower extremities for the past 2 weeks. The patient states the swelling and redness has gotten so painful that she came to the Emergency Department to be admitted. The patient denies fevers or chills. The patient denies any other associated wounds. The patient states she has had swelling in her legs over the past several months, but nothing ___ like this. The patient denies any other associated wounds at this time. PAST MEDICAL HISTORY: Significant for hypertension, hyperlipidemia, atrial fibrillation, autoimmune thyroiditis, anxiety. CURRENT MEDICATIONS: Multiple, I reviewed the patient's medication list. DRUG ALLERGIES: PENICILLIN. SOCIAL HISTORY: The patient denies tobacco use. Drinks alcohol socially. Lives independently. FAMILY HISTORY: Not pertinent to current medical condition. REVIEW OF SYSTEMS: CONSTITUTIONAL: The patient denies fevers, chills. NEUROLOGIC: The patient has overall generalized weakness, but no isolated weakness in arms or legs. EYES: No complaints. EARS, NOSE AND THROAT: No complaints. CARDIAC: The patient has no chest pain or palpitations, but does have chronic lower extremity edema, worse in the past several weeks. RESPIRATORY: The patient denies shortness of breath, cough, wheezes. GASTROINTESTINAL: The patient denies nausea, vomiting, abdominal pain. GENITOURINARY: The patient denies urgency or frequency. [facility] [address] [place] [address] CONSULTATION Name: RICARDA GARNER Room #: 459-P [facility] IN M.R.#: [id number] Admission: 05/10/21 Attend Phys: Sebas Dumont MD Discharge: 05/17/21 Date of : 46 Report #: [id number] MUSCULOSKELETAL: No complaints. SKIN: There are multiple venous leg ulcers, which are superficial in bilateral lower extremities with associated cellulitis. PHYSICAL EXAMINATION: VITAL SIGNS: Temperature 37.1, pulse 104, respiration rate 19, BP 102/69. GENERAL: This is an alert and oriented x3, white female who is in moderate distress secondary to pain. HEENT: Normocephalic, atraumatic. Mucous membranes are dry. Pupils are round. Sclerae white. NECK: Without JVD. LUNGS: Clear. HEART: Regular. ABDOMEN: Soft, nontender. EXTREMITIES: The patient has 3+ edema bilateral lower extremities with multiple superficial ulcerations, all of which are weeping serous fluid, but no significant odor. There is increased erythema, warmth and tenderness. Distal pulses are intact. There is exquisite tenderness to palpation. Bilateral heels are intact. NEUROLOGIC: The patient is grossly intact. Motor and sensory are grossly intact. LABORATORY DATA: White count 9.8, hemoglobin 10.3. Sed rate 43. BUN 21, creatinine 0.7, and albumin 3.1. IMPRESSION: 1. Bilateral lower extremity cellulitis. 2. Bilateral lower extremity venous insufficiency with edema and multiple superficial ulcerations. 3. Generalized debility. 4. Protein calorie malnutrition -- moderate with albumin 3.1. 5. Nausea. PLAN: IV antibiotics had already been started for this patient. We will start morphine, Silvadene cream to both legs to help with the pain control. Cover this with Xeroform, ABD, Kerlix and Jae for control of edema. We will have the patient elevate her legs as much as possible. We will utilize physical and occupational therapies as the patient is able. We will make sure we maximize the patient's oral protein supplementation for healing. We will continue all other current medications. Appreciate ability to consult. <ELECTRONICALLY SIGNED> By: Rian Kearney MD 05/18/21 0850 [id number] Rian Kearney MD /nt
== END 2021-05-17 15:44 | DRG 872 ==
LOC: ER 14:22 → 4W 18:00 → EROBS 18:00 → 4W 05-17 15:44
PROVIDERS: Nurse Practitioner; Nurse Practitioner Family; ADMIT Hospitalist; ATTEND Hospitalist
DX: A41.9 Sepsis, unspecified organism (principal); L03.115 Cellulitis of right lower limb; L97.929 Non-pressure chronic ulcer of unspecified part of left lower leg with unspecified severity; L97.919 Non-pressure chronic ulcer of unspecified part of right lower leg with unspecified severity; E44.0 Moderate protein-calorie malnutrition; I69.354 Hemiplegia and hemiparesis following cerebral infarction affecting left non-dominant side; L03.116 Cellulitis of left lower limb; I10 Essential (primary) hypertension; I48.91 Unspecified atrial fibrillation; E78.5 Hyperlipidemia, unspecified; K21.9 Gastro-esophageal reflux disease without esophagitis; F41.1 Generalized anxiety disorder; E03.9 Hypothyroidism, unspecified; I89.0 Lymphedema, not elsewhere classified; E87.5 Hyperkalemia; R53.81 Other malaise; I87.2 Venous insufficiency (chronic) (peripheral); I87.8 Other specified disorders of veins; Z60.2 Problems related to living alone; E53.8 Deficiency of other specified B group vitamins; Z20.822 Contact with and (suspected) exposure to COVID-19; R41.0 Disorientation, unspecified; K59.00 Constipation, unspecified; B95.62 Methicillin resistant Staphylococcus aureus infection as the cause of diseases classified elsewhere; F32.9 Major depressive disorder, single episode, unspecified; Z79.899 Other long term (current) drug therapy; Z99.3 Dependence on wheelchair; Z98.49 Cataract extraction status, unspecified eye; Z88.0 Allergy status to penicillin; Z91.013 Allergy to seafood; I69.320 Aphasia following cerebral infarction; Z68.27 Body mass index [BMI] 27.0-27.9, adult; Z79.01 Long term (current) use of anticoagulants
CPT/HCPCS: 10040

== ENCOUNTER 2021-05-17 11:36 | Inpatient (IN) | payer OTHER ==
[~2021-05-17] VITALS: Ht 162.6 cm; Wt 70.8 kg
[~2021-05-17 11:36] MED LIST: APAP W/CODEINE1 TA2 PO; DULOXETINE HCL30 MG PO; FUROSEMIDE 40 M40 MG PO; GABAPENTIN100 MG PO; KLOR-CON M2020 MEQ PO; LEVOTHYROXINE50 MC1 PO; LIPITOR40 MG PO; MELATONIN5 M4 PO; NORVASC5 M1 PO; SPIRONOLACTONE25 MG PO; TRAZODONE HCL100 MG PO; VITAMIN C1000 MG PO; VOLTAREN ARTHRI20 GM TOP; WARFARIN SODIUM1 MG PO; WARFARIN SODIUM5 MG PO
[2021-05-17] MEDS ORDERED: HYDROCODON-ACE1 EAC7 PO (13:37)
[2021-05-17] MEDS ORDERED: CEPHALEXIN500 MG PO (13:38)
--- NOTE | 2021-05-17 17:17 | NUR ---
PATIENT IS AN 70Y/O FEMALE WHO ARRIVED FROM 4TH FLOOR TO THE REHAB UNIT AT 1545HRS. PATIENT IS A&OX3-4, BUT FORGETFUL AT TIME. LUNGS WITH DIMINISHED SOUND PER AUSCULTATION IN ALL LOBE. BS+X4, ABD SOFT, NON-TENDER TO TOUCH. PATIENT HAS BILAT LOWER EXT VENOUS INSUFFICIENCY WITH EDEMA, CELLULITIS AND MULTIPLE SUPERFICIAL ULCERS. DRESSING TO BILAT LOWER EXTREMITY CHANGED THIS AFTERNOON BY WOUND CARE TEAM, PHOTO OBTAINED PER REPORT, NEED DAILY DRESSING CHANGE. PATIENT HAS BEEN CONTANTLY ON THE CALL LIGHT FOR SOMATIC COMPLAINS. PRN HYDROCODONE GIVEN FOR BILAT LEG PAIN OF 6/10. PATIENT SIGNED ALL CONSENT FORMS. APPETITIE IS FAIR, SHE CONSUME ABOUT 50% SUPPER. PATIENT TRANSFERS WITH MAX ASSIST, USES W/C FOR MOBILITY, BROUGHT HER OWN WHEELCHAIR. PATIENT HAS TORREZ CATH IN PLACE FOR URINARY RETENTION, TORREZ PATENT TO DEPENDENT DRAINAGE, DRAINING LIGHT YELLOW URINE. SAFETY PRECAUTIONS IN PLACE. NO SIGN OF ACUTE DISTRESS NOTED AT THIS TIME, CALL LIGHT IN REACH, WILL CONTINUE TO MONITOR.
[2021-05-17 19:32] VITALS: BP 127/79
--- NOTE | 2021-05-18 04:25 | NUR ---
05-17-21 CARE TRANSFERRED 1899. LATER PT AAOX4, VSS, RR EVEN AND NONLABORED ON RA, LUNGS CLEAR/DIMISHED AT BASES, HT RR, ABD SOFT/ACTIVE. PT TORREZ, INTACT, AND 100ML YELLOW URINE EMPTY. PT REPORTS PAIN IN BLE AND PAIN HAS BEEN MANAGED WITH PRN MEDICATION. PT BLE DRESS C/D/I, PT LE ELEVATED. PT PRESENTS FUSSY AND DEMANDING, BUT HAS TROUBLE COMMUNICATING HER THOUGHTS CLEARLY. LATER PT WAS REPOSITION FOR COMFORT. PT WILL CONTINUE TO BE MONITOR.
[2021-05-18 06:27] LABS: INR 1.07; PROTIME 11.6 Seconds (10.5-12.1)
[2021-05-18 06:33] LABS: HEMOGLOBIN 10.4 gm/dL (12.0-15.0); MCH 29.6 pg (26.0-34.0); MCHC 32.4 g/dL (28.0-37.0); MCV 91.3 fL (80.0-100.0); RBC 3.51 mil/uL (4.20-5.00); RDW 14.2 % (10.5-14.5); WBC 15.9 thou/uL (4.0-11.0)
[2021-05-18 06:42] LABS: CALCIUM 8.7 mg/dL (8.5-10.1); CREATININE 0.5 mg/dL (0.6-1.0); POTASSIUM 3.6 mmol/L (3.5-5.1)
[2021-05-18 08:15] VITALS: BP 118/56
[2021-05-18 08:36] VITALS: BP 118/56
--- NOTE | 2021-05-18 08:54 | NUR ---
Chart review. She lives home alone, manage own medication, independent with adl's. Has new walk in shower and shower bench. Has a life alert already. w/c, walker and support from her sister and brothers if needed. Not currently drives but plans to drive again. Had skilled rehab in past at [place]. Agreeable to if needed.
[2021-05-18 19:26] VITALS: BP 109/70
--- NOTE | 2021-05-18 21:56 | NUR ---
ASSUMED CARE OF PT AT 1930. PT IS A&OX4. IS ON ROOM AIR. IS STABLE. REPORTS PAIN IN BILAT LE THAT IS BEING MANAGED WITH ORAL MEDS & OTHER THERAPUETIC TECHNIQUES. DRSG C/D/I. LOWER EXTREMITIES ELEVATED. HEELS OFF LOADED. NON PITTING EDEMA NOTED WITH 2+ PULSES. PT STATED, "I DO NOT NEED ANY HELP TURNING. I CAN TURN MYSELF". PT IS UP WITH MAX ASSIST OF 2-3, GB, STAND PIVOT. FALL PRECAUTIONS & HOURLY ROUNDING CONTINUED THIS SHIFT. LABS & VITALS REVIEWED. AT SHIFT CHANGE THIS NURSE ENTERED PT'S ROOM & GREETED PT & INTRODUCED MYSELF. PT WAS PLEASANT. PT ASKED, "DID YOU SPEAK WITH THE OTHER NURSE YET?". I REPLIED, "NOT YET. SHE IS DOING SOMETHING ELSE AT THE MOMENT, SO I THOUGHT I WOULD COME TO MEET YOU & INTRODUCE MYSELF." WE CONTINUED TO TALK, I ASKED THE PT, "DO YOU HAVE ANY CONCERNS? IS THERE ANYTHING I CAN HELP YOU WITH RIGHT NOW? DO YOU HAVE ANY PAIN RIGHT NOW?". THE PT STATE, "I DON'T HAVE ANY CONCERNS. I DO HAVE SOME PAIN, BUT WOULD LIKE TO WAIT FOR THE OTHER NURSE TO COME TO TALK". I REPLIED, "OKAY. WE CAN WAIT ON HER, BUT IF YOU NEED SOMETHING FOR PAIN PLEASE LET ME KNOW". I WAS UPDATED THE BOARD, THE OTHER NURSE WALKED IN & WE BEGAN REPORT. THE PT WAITED UNTIL WE WERE FINISHED & ASKED, "IF I GET A PAIN PILL RIGHT NOW, WILL I BE ABLE TO HAVE ANOTHER ONE AT 11?". I REPLIED, "YOU MAY HAVE A PAIN PILL Q4H IF YOU NEED IT". THE OTHER NURSE AGREED. THE PT THEN ASKED FOR A PAIN PILL & HER MEDS. I THEN PULLED THE PT'S MEDS INCLUDING PAIN PILL & WENT IN TO ADMINISTER AFTER COMPLETING MY ASSESSMENT. WHILE IN THE PROCESS OF SCANNING THE PT & SCANNING THE MEDS, I ASKED THE PT, "WHAT DO YOU LIKE TO TAKE MIX YOUR MIRALAX WITH, WATER OR JUICE?". PT REPLIED, "WATER, BUT I WANT MY PAIN PILL FIRST". SHE THEN BEGAN TO YELL AT ME STATING, "JUST GIVE ME MY PAIN PILL NOW!". I USED THERAPUETIC COMMUNICATION WITH PT. I ASKED THE PT TO "PLEASE CALM DOWN & DO NOT YELL, I AM PREPARING YOUR MEDS & TRYING TO HELP. I HAVE YOUR PAIN MED RIGHT HERE. WE ARE GOING TO HAVE A GOOD NIGHT". PT APOLOGIZED & CALMED DOWN. THIS NURSE HAS FREQUENTLY CHECKED ON PT. SHE IS CURRENTLY ASLEEP. CALL LIGHT WITHIN REACH. WILL CONTINUE TO MONITOR.
[2021-05-19 08:22] VITALS: BP 118/73
[2021-05-19 08:30] VITALS: BP 118/73
--- NOTE | 2021-05-19 10:57 | NUR ---
Cont. working with therapy on acute rehab. Will cont. with discharge planning as needed for dc needs. BPCI.
[2021-05-19 19:28] VITALS: BP 93/55
--- NOTE | 2021-05-20 04:00 | NUR ---
ASSUMED CARE AT 1900 OF 05/19. PATIENT IS A&OX4, COOPERATIVE AND PLEASANT. ON ROOM AIR, DENIES SOB. BLE DRESSING IN PLACE AND INTACT. PATIENT ASSISTED WITH REPOSITIONING IN BED. REPORTS BLE PAIN, WHICH IS MANAGED WITH PRN PAIN MEDICATION. FALL PRECAUTIONS IN PLACE, SLEEPING DURING HOURLY ROUNDS, CALL LIGHT WITHIN REACH. WILL CONTINUE TO MONITOR.
[2021-05-20 08:15] VITALS: BP 116/70
[2021-05-20 08:16] VITALS: BP 101/62
[2021-05-20 11:20] VITALS: BP 116/70
--- NOTE | 2021-05-20 11:46 | NUR ---
WHILE TAKING HER AM LACTULOSE, PT BEGAN COUGHING WITH A RUNNY NOSE. THIS PROGRESSED INTERMITTENTLY TO A SIGNIFICANT COUGH, AND PT SHOUTING" i AM CHOKING!" PT WAS BREATHING ADEQUATELY, WITH O2 SAT 96% ON ROOM AIR, BUT CONTINUED TO COUGH INTERMITTENTLY. MESSAGE SENT TO CNC LASER OPERATOR, AND SHE IS LOOKING AT ORDERS. PT GIVEN HOT TEA, AND AT THIS TIME, IT APPEARS TO CALM HER IRRITATION IN HER THROAT. CONTINUING TO PROVIDE SUPPORT AND MONITOR AT THE BEDSIDE.
--- NOTE | 2021-05-20 18:09 | NUR ---
ASSUMED CARE OF PT AT 0700. PTWITH O.T. GETTING A SHOWER. PT DRESSINGS CHANGED PER ORDER. PT A&OX4. PT UP WITH MAX ASSIST TO WHEELCHAIR. PT SAT UP IN FOR TE MORNING AND NOON MEALS PT. BACK TO BED VIA [facility] DEVICE. WILL CONTINUE TO MONITOR.
[2021-05-20 20:00] VITALS: BP 101/66
--- NOTE | 2021-05-21 03:55 | NUR ---
ASSUMED CARE AT 1900 OF 05/20. PATIENT IS A&OX4, DENIES SOB. APPEARS TO BE IRRITABLE AND REFUSED TO CHANGE INTO A GOWN FOR THE NIGHT. PATIENT REPORTS IT IS A WHOLE LOT OF HASSLE FOR NOTHING. PATIENT WAS THEN ASSISTED WITH REPOSITIONING. TORREZ IN PLACE AND DRAINING YELLOW URINE. PRN HYDROCODONE ADMINISTERED FOR BLE PAIN, PRN DICLOFENAC GEL APPLIED TO BILATERAL KNEES FOR ARTHRITIS PAIN. FALL PRECAUTIONS IN PLACE, CALL LIGHT WITHIN REACH. WILL CONTINUE TO MONITOR.
[2021-05-21 06:56] LABS: HEMATOCRIT 32.8 % (37.0-47.0); HEMOGLOBIN 10.4 gm/dL (12.0-15.0); MCH 29.3 pg (26.0-34.0); MCHC 31.7 g/dL (28.0-37.0); MCV 92.4 fL (80.0-100.0); PLATELET COUNT 482 thou/uL (150-400); RBC 3.55 mil/uL (4.20-5.00); RDW 14.4 % (10.5-14.5); WBC 9.7 thou/uL (4.0-11.0)
[2021-05-21 07:14] LABS: ALBUMIN 1.9 g/dL (3.4-5.0); CALCIUM 8.8 mg/dL (8.5-10.1); CREATININE 0.5 mg/dL (0.6-1.0); MAGNESIUM 2.3 mg/dL (1.8-2.4); PHOSPHORUS 4.1 mg/dL (2.5-4.9); POTASSIUM 4.3 mmol/L (3.5-5.1); TOTAL BILIRUBIN 0.2 mg/dL (0.2-1.0); TOTAL PROTEIN 5.9 g/dL (6.4-8.2)
[2021-05-21 07:15] VITALS: BP 98/50
[2021-05-21 07:52] LABS: ABSOLUTE NEUTROPHILS 5.8 thou/uL (1.4-8.2); PLATELET ESTIMATE NORMAL
--- NOTE | 2021-05-21 09:44 | NUR ---
PT WAS SLEEPING THIS AM AND AWOKE AND GOT HER SET UP TO EAT. PT ANXIOUS ABOUT BREAKFAST TRAY LYING OVER HER LEGS AND THAT SHE NEEDED TO GET TRAY CLOSER TO HER. PT TOOK MEDS WHOLE WITH THIN WATER. PT HAS DRESSINGS TO LE BILATERALY THAT ARE INTACT WITH MICHAEL BANDAGE WRAP. PT STATED WHEN THIS FASHION BUYER DOES THE DRESSING CHANGES TO BE CAREFUL DUE TO PAIN. PT WANTED TO KNOW WHEN THERAPY WAS THIS AM. PT STATED THERE IS NO OT AND WANTED THIS FASHION BUYER TO ASSIST HER TO BATHROOM TO GET CLEANED UP AND CHANGE HER SHIRT. PT GOT ANXIOUS WHEN ORGANIZING HER ROOM AND FOUND D/C PAPERS FROM PREVIOUS FLOOR AND PT SAYED IN A FRANTIC VOICE SHE WANTED TO SEE THEM AND SHE NEEDED HER GLASSES. ASKED PT WHY SHE IS ANXIOUS, PT DIDN'T KNOW.
--- NOTE | 2021-05-21 12:08 | NUR ---
ADM HYDROCODONE 5MG PO FOR PRE-DRESSING CHANGE MEDICATION. PT STATED PAIN IS 5 ON 1-10 SCALE. PT STATED SHE WILL NEED TO TAKE BEFORE DRESSING CHANGE.
--- NOTE | 2021-05-21 16:07 | NUR ---
PT HAD A VISITOR HERE TO VISIT, AFTER THAT SHE WANTED TO GET CLEANED UP. PT WAS TAKEN TO BATHROOM VIA W/C AND WAS ABLE TO BRUSH HER TEETH AND GET HAIR CLEANED WITH SHOWER CAP. PT WANTED TO SIT ON THE TOILET. PT DID HAVE SMALL BM. PT HAS TORREZ TO DD. PT SITTING UP IN W/C AT THIS TIME. PT NEEDED ASSIST PIVOTING TO W/C, PT DOES USE BAR TO PULL SELF UP AND STAND.
[2021-05-21 19:36] VITALS: BP 93/59
--- NOTE | 2021-05-22 02:43 | NUR ---
assumed care approx 1900 evening 05/21. pt sitting up in w/c at change of shift watching [employer] game. dressings to lower legs c/d/i. john to dd with yellow urine to bag. pt max assist into bed from w/c. pt refused to wear gown to bed. pt took hs meds with water and pain meds given as ordered. pt appears to be sleeping soundly. bed alarm on and call light in reach. will continue to monitor.
[2021-05-22 08:00] VITALS: BP 93/59
[2021-05-22 18:57] VITALS: BP 120/60
--- NOTE | 2021-05-23 01:48 | NUR ---
ASSUMED CARE APPROX 1900 EVENING 05/22. PT LYING IN BED AT CHANGE OF SHIFT SOMEWHAT ANXIOUS, FUSSY, AND FRUSTRATED. PT GIVEN HS MEDS EARLY PT YELLING OUT FOR MEDS. PT TOOK WITH WATER TOLERATING WELL. PT FINALLY SETTLED DOWN APPROX 2340 AND APPEARS TO BE SLEEPING SOUNDLY AT PRESENT. BED ALARM ON AND CALL LIGHT IN REACH. WILL CONTINUE TO MONITOR.
--- NOTE | 2021-05-23 12:55 | NUR ---
Team meeting, recommendation; john training to work on dc john. anxiety, yells out. bilat leg dressing changes daily. 2 person standing balance with dressing. max assist stand pivot transfer. 6ft with walker and moderate assist with 2nd person follow with wheelchair. max bed mobility. ok to do finances but will need assist with medications. has lady that can assist with home duty and errands if needed. Re team, BPCI. anticipated 06/01
[2021-05-23 16:00] VITALS: BP 120/60
[2021-05-23 19:38] VITALS: BP 99/59
--- NOTE | 2021-05-24 06:02 | NUR ---
ASSUMED CARE AT 1900 OF 05/23. PATIENT IS A&OX4. REPORTED BLE PAIN AT HS, AND PAIN WAS MANAGED WITH PRN HYDROCODONE. CURRENTLY ON BLADDER TRAINNING. TORREZ WAS FIRST CLAMPED AT 1800 OF 05/23. PATIENT REPORTED FEELING THE URGE TO VOID 3 TIMES DURING THIS SHIFT. AT 1945, OUTPUT WAS 150CC, AT 2200, OUTPUT WAS 200, THEN AT 0115 OUTPUT WAS 400CC. TORREZ WAS RECLAMPED AT 0145, PATIENT WAS NOT REPORTED THE FEELING TO VOID THIS AM. FALL PRECAUTIONS IN PLACE, CALL LIGHT WITHIN REACH. WILL CONTINUE TO MONITOR.
[2021-05-24 07:15] VITALS: BP 108/61
--- NOTE | 2021-05-24 10:54 | NUR ---
private duty and senior blue book, left with lilly at bedside.
--- NOTE | 2021-05-24 18:43 | NUR ---
Assumed pt care at 0700. Alert and oriented x4. anxious and irritable with care. Took meds whole with thin liquid, no difficulty noted. Pt bladder training.. Pt report feeling urge to void 2 times this shift. Charles was clamped. Dressing changed to low extremeties completed, pictures taking and placed in chart. PT is a max assist with care. Had a bowel movement this shift. Call light within reach. pt received pain meds prior to dressing change. Wound came and seen the wounds, stated wounds are healing appropriately. pt tolerated dressing change. Will continue to monitor.
[2021-05-24 20:00] VITALS: BP 108/61
[2021-05-25 08:00] VITALS: BP 108/61
--- NOTE | 2021-05-25 11:55 | NUR ---
ASSUMED CARE AT 0700. PATIENT IS ALERT AND ORIENTED X3, FORGETFUL. PATIENT MCKINNEY'S, CORRECTIONAL OFFICER SERGEANT ARE WEAK. LEGS ARE WEAK, MAX TRANSFER WITH 2 STAFF, GAIT BELT , AND WALKER. UP IN W/C FOR MEALS. DRESSING CHANGED ACCORDING TO PROTOCOLS. TORREZ D/C'D PER TERMINAL BLOCK ASSEMBLER. PATIENT TOLERATED PROCEDURE WELL. WILL CONTINUE TO MONITER PATIENTS URINE OUTPUT. FALL AND SAFETY PROTOCOLS IN PLACE. C/O PAIN IN HER LOWER EXTREMITIES. PATIENT WAS MEDICATED WITH PRN PAIN MED. PATIENT CONTINUES TO PROGRESS SLOWLY TOWARDS D/C GOALS. WILL CONTINUE TO MONITER.
[2021-05-25 19:52] VITALS: BP 109/69
[2021-05-26 03:36] LABS: ABSOLUTE NEUTROPHILS 6.5 thou/uL (1.4-8.2); BASOPHILS 1.9 % (0.0-2.0); EOSINOPHILS 3.8 % (0.0-3.0); HEMATOCRIT 29.2 % (37.0-47.0); HEMOGLOBIN 9.5 gm/dL (12.0-15.0); LYMPHOCYTES 19.9 % (24.0-44.0); MCH 29.9 pg (26.0-34.0); MCHC 32.5 g/dL (28.0-37.0); PLATELET COUNT 512 thou/uL (150-400); POLYS 66.4 % (36.0-66.0); RBC 3.17 mil/uL (4.20-5.00); RDW 14.8 % (10.5-14.5); WBC 9.8 thou/uL (4.0-11.0)
[2021-05-26 04:03] LABS: CALCIUM 8.9 mg/dL (8.5-10.1); CREATININE 0.4 mg/dL (0.6-1.0); MAGNESIUM 2.1 mg/dL (1.8-2.4); POTASSIUM 4.1 mmol/L (3.5-5.1)
--- NOTE | 2021-05-26 05:24 | NUR ---
PATIENT CARE WAS RESUMED AT 0100. SHE IS ALERT AND ABLE TO VERBALIZE HER NEED. SHE IS A MAX ASSIST WITH TRANSFER AND BED SIDE COMMODE. SHE DENIES PAINS AT THIS TIME. CONTINENT OF BOWEL AND BLADDER.SCHEDULED MEDS GIVEN PER ORDER.CONTINUE CARE
[2021-05-26 09:00] VITALS: BP 109/69
--- NOTE | 2021-05-26 13:48 | NUR ---
Assess d/t LOS: On rehab day 7+. Pt noted with state UBW 170# and claimed 156# to be inaccurate on last RD assess 05/17/21. She is still showing possible wt loss of 8.2% from UBW in unknown time frame. Intakes at meals are 75-100%, enusre enlive at lunch daily with 100% intake. Low nutrition risk with interventions in place.
--- NOTE | 2021-05-26 16:44 | NUR ---
cont. dc planning as needed for dc needs.
[2021-05-26 20:26] VITALS: BP 104/62
--- NOTE | 2021-05-27 02:20 | NUR ---
ASSUMED CARE 1900 OF 05/26. PATIENT IS A&OX3, FORGETFUL AT TIMES. PATIENT REPORTS BLE PAIN, PRN PAIN MEDICATION ADMINISTERED TO MANAGE PAIN. MAXIMUM ASSIST OF 2 USING GAIT BELT FOR PIVOT TRANSFER TO [facility]. BLE WRAPS IN PLACE AND INTACT. PATIENT REFUSES TO WEAR HEAL PROTECTORS WHILE IN BED, SO PILLOWS ARE USED TO OFFLOAD FEET. ASSISTED WITH REPOSITIONING. WILL CONTINUE TO MONITOR.
--- NOTE | 2021-05-27 10:39 | HC ---
[facility] [place] [address] CONSULTATION Name: RICARDA GARNER Room #: 511-P ADM IN M.R.#: [id number] Admission: 05/17/21 Attend Phys: Juan Bhatia MD Discharge: Date of : 46 Report #: [id number] THIS REPORT FOR: cc: Neil Block MD, Scott C. MD Deutch,To Rosas PhD ~ DATE OF SERVICE: 05/21/2021 NEUROBEHAVIORAL STATUS EXAM AGE: 70. ATTENDING PHYSICIAN: Juan Bhatia M.D. PODIATRIC PHYSICIAN: To Evans, Ph.D. CLINICAL PRESENTATION: The patient is a 70-year-old female admitted to the rehabilitation unit at [facility] for a comprehensive inpatient rehabilitation treatment program. 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 A complete description of her medical condition and history can be found in her medical record. Neuropsychological consultation was requested to provide assistance in the assessment of cognitive and emotional status and to provide recommendations and services. Prior to this most recent admission, she was living alone in her own home. She never and has no children. She is a college graduate. 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 She has 6 brothers and sisters, 4 live within the [place] area. TECHNIQUES UTILIZED: Clinical interview, review of medical records, staff consultation and behavioral observation, mini mental status exam 2 standard version, clock drawing and verbal fluency assessment. EXAMINATION FINDINGS: The patient reports her symptoms to include word finding, anxiety, sleep disorder and appetite. She does not report difficulty with her memory, but severe impairment in word finding. She reports having been independent with basic and instrumental activities of daily living. Her performance on the MMSE-2 brief version is within normal limits with a raw score of 14 of 16. She had difficulty with recalling the season and was 2/3 for immediate recall of 3 items after a brief time delay and distraction. [facility] [address] [place] [address] CONSULTATION Name: RICARDA GARNER Room #: 511-P [facility] IN M.R.#: [id number] Admission: 05/17/21 Attend Phys: Juan Bhatia MD Discharge: Date of : 46 Report #: [id number] Performance on the MMSE-2 standard version is within normal limits with a raw score of 26/30. She was 4/5 for serial sevens. She also had difficulty with copying a simple geometric design. Clock drawing was impaired for both hand placement and visual spatial constructive deficits. Letter fluency was a raw score of 15, T score of 31 and percentile rank of 3. Category fluency was a raw score of 26, which is a T score of 25 and percentile rank of 1. Overall, total fluency was a raw score of 41, which is a T score of 23 and percentile rank of less than 1. The patient is presenting with deficits in verbal fluency suggesting moderate to severe executive dysfunction. Visual spatial constructive deficits are also noted. 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 Unspecified anxiety disorder. RECOMMENDATIONS: Continue treatment for neurocognitive disorder that involves speech therapy to assist with compensatory strategies and cognitive stimulation. The patient will likely require increased assistance with planning and problem solving upon her return home. She reports having been independent with driving. A driving evaluation to ensure safety along with a followup neuropsychological evaluation to clarify the severity of cognitive deficits are recommended. The use of relaxation strategies along with assistance in implementing compensatory techniques will also be helpful as part of her overall treatment program. Thank you very much for allowing me to provide the consultation on this patient. <ELECTRONICALLY SIGNED> By: To Evans, PhD 05/27/21 [id number] To Evans, PhD /nt
--- NOTE | 2021-05-27 10:44 | NUR ---
ASSUMED CARE AT 0700. PAITENT IS ALERT AND ORIENTED X2. PATIENT HAS OUTBURSTS OF YELLING AT STAFF. LUNGS ARE CLEAR AND DEMINISHED. ABD IS SOFT WITH BSX4. PATIENT IS UP TO BSC TO VOID AND HAVE LARGE, FORMED, BROWN B.M. PATIENT IS NOT HELPING MUCH WITH TRANSFERS. PATIENT IS TO BE UP WITH GAIT BELT AND WALKER. FALL AND SAFETY PROTOCOLS IN PLACE. DENIES PAIN AT THIS TIME. CONTINUES TO PROGRESS SLOWLY TOWARDS D/C GOALS. DRESSING TO LOWER EXTREMITIES CHANGED PER PROTOCOLS. WILL COTINUE TO MONITER.
[2021-05-27 19:26] VITALS: BP 105/67
--- NOTE | 2021-05-28 02:49 | NUR ---
assumed care approx 1900 evening 05/27. pt yelling and screaming at change of shift that she has to go to the bathroom and cannot wait. per day RN pt did have large bm. pt advised to calm down and assisted to toilet. pt given much emotional support and into bed at hs. pt given hs meds early and took well with water. pt incontinent of urine and complete bed change. pt also used bedpan to void large amt. pt calmed down after meds given and appears to be sleeping off and on. no more yelling as of yet. bed alarm on and call light in reach. will continue to monitor.
--- NOTE | 2021-05-28 08:15 | NUR ---
ASSUMED CARE AT 0700. PATIENT IS ALERT AND ORIENTED X1-2. PATIENT MCKINNEY'S, MARKET STALL VENDOR ARE EQUAL. LUNGS ARE CLEAR AND DEMINISHED. ABD IS SOFT WITH BSX4. UP TO THE BSC X2. PATIENT IS UP WITH MAX ASSIST OF 1-2 STAFF. FALL AND SAFETY PROTOCOLS IN PLACE. DENEIS PAIN AT THIS TIME. LEG DRESSINGS CHANGED ACCORDING TO PROTOCOL. CONTINUES TO PROGRESS SLOWLY TOWARDS D/C GOALS. WILL CONTINUE TO MONITER.
[2021-05-28 08:25] VITALS: BP 126/74
[2021-05-28 20:02] VITALS: BP 107/57
--- NOTE | 2021-05-29 02:02 | NUR ---
ASSUMED CARE AT 1900 OF 05/27. PATIENT IS A&O TO PERSON AND TIME, FORGETFUL AT TIMES, AND INTERMITENTLY CONFUSED. PATIENT WAS YELLING AGAIN DURING SHIFT, REMINDED TO USE THE CALL AND NOT JUST TO SHOUT OUT WHEN SHE NEEDS ASSISTANCE. PATIENT WAS YELLING BECAUSE SHE HAD AN EPISODE ON BLADDER INCONTINENCE. ASSISTED WITH CHANGING AND REPOSITIONING. PATIENT SEEMED CALM AND COOPERATIVE. HS MEDICATIONS TOLERATED WHOLE W/ THIN LIQUIDS. REPORTED PAIN IN BLE, WHICH IS MANAGED WITH PRN HYDROCODONE. MAXIMUM ASSIST OF 1-2, USING GB TO PIVOT TRANSFER TO [facility], TO VOID YELLOW COLORED URINE. FALL PREACAUTIONS IN PLACE, CALL LIGHT WITHIN REACH. WILL CONTINUE TO MONITOR.
--- NOTE | 2021-05-29 11:42 | NUR ---
ASSUMED CARE AT 0700. PATIENT IS ALERT AND ORIENTED X2-3. PATIENT MCKINNEY'S, KNOT TIER ARE EQUAL. LUNGS ARE CLEAR AND DEMINISHED. ABD IS SOFT WITH BSX4. UP IN THE W/C FOR MEALS. PATIENT IS UP WITH MAX ASSIST OF 1 TO BATHROOM TO VOID CORAL COLORED URINE. DRESSINGS TO L.E. CHANGED ACCORDING TO PROTOCOL. FALL AND SAFETY PROTOCOLS IN PLACE. DENIES PAIN AT THIS TIME. CONTINUES TO PROGRESS SLOWLY TOWARDS D/C GOALS. WILL CONTINUE TO MONITER.
[2021-05-29 19:46] VITALS: BP 107/55
--- NOTE | 2021-05-30 01:10 | NUR ---
ASSUMED CARE AT 1900 OF 05/29. PATIENT IS A&O TO PERSON AND PLACE, CAN BE FORGETFUL. MAXIMUM ASSIST OF 1 WITH PIVOT TRANSFER TO BSC TO VOID CORAL COLORED URINE. BLE DRESSINGS AND MICHAEL WRAPS ARE IN PLACE AND INTACT. HEELS AR OFFLOADED WITH PILLOWS WHILE IN BED, PATIENT REFUSES TO WEAR HEEL PROTECTORS. ASSISTED WITH REPOSITIONING IN BED. FALL PRECAUTIONS IN PLACE, CALL LIGHT WITHIN REACH. WILL CONTINUE TO MONITOR.
[2021-05-30 09:15] VITALS: BP 107/55
--- NOTE | 2021-05-30 13:26 | NUR ---
Team meeting, recommendation she did assist with clothing today, needs moderate assist. needs assist with transfers. needs more assist when she is fatigued. slide board, she cont. need assist with position of board. Need allot assist with bed mobility. Need assist with bills and pills. Yelling out more often. BPCI. she going to need more cont. therapy vs home with [employer] [facility] who can provide physical assistance. DC 06/01.
[2021-05-30 19:12] VITALS: BP 105/62
--- NOTE | 2021-05-31 02:32 | NUR ---
ASSUMED CARE AT 1900 OF 05/30. PATIENT IS A&OX3, FORGETFUL AT TIMES. CALLED OUT FOR MEDICATIONS AT HS. MAXIMUM ASSIST OF 1 WITH PIVOT TRANSFER TO BSC TO VOID CORAL COLORED URINE. ASSISTED WITH REPOSITIONING, HEELS OFFLOADED WITH PILLOWS. CONTINUES TO REFUSE HEEL PROTECTORS. BLE DRESSINGS ARE CDI, NO C/O PAIN. FALL PRECAUTIONS IN PLACE, CALL LIGHT WITHIN REACH. WILL CONTINUE TO MONITOR.
[2021-05-31 08:15] VITALS: BP 105/62
--- NOTE | 2021-05-31 12:38 | NUR ---
referral sent to [facility] am and called back, unable to accept r/t she was just there from sep 2020 to december 2020, she had behaviors and refused medication when she was here. amaya visited with [facility] location, ok to send to [facility] and [facility]. amaya called her sister, left message requesting a call back. referral sent.
[2021-05-31 19:47] VITALS: BP 101/61
--- NOTE | 2021-06-01 02:18 | NUR ---
PT IS ALERT AND ORIENTED. WITH EXPRESSIVE APHASIA. PT TENDS TO GET ANGER BURSTS AND YELL AT STAFF. PT REDIRECTED IN A CALM MANNER.PT UP TO THE BSC WITH ASSIST X 1.BLE WITH WRAPS IN PLACE AND ELEVATED ON PILLOWS.AFEBRILE. APPEARS TO BE RESTING COMFORTABLY AT THIS TIME, CALL LIGHT WITHIN REACH.
[2021-06-01 05:38] LABS: ABSOLUTE NEUTROPHILS 4.7 thou/uL (1.4-8.2); BASOPHILS 1.2 % (0.0-2.0); EOSINOPHILS 4.5 % (0.0-3.0); HEMATOCRIT 32.3 % (37.0-47.0); HEMOGLOBIN 10.3 gm/dL (12.0-15.0); LYMPHOCYTES 24.6 % (24.0-44.0); MCH 29.4 pg (26.0-34.0); MCHC 31.8 g/dL (28.0-37.0); MCV 92.3 fL (80.0-100.0); MONOCYTES 10.4 % (1.0-8.0); PLATELET COUNT 474 thou/uL (150-400); POLYS 59.3 % (36.0-66.0); RDW 14.6 % (10.5-14.5); WBC 7.9 thou/uL (4.0-11.0)
[2021-06-01 05:51] LABS: CALCIUM 8.7 mg/dL (8.5-10.1); CREATININE 0.5 mg/dL (0.6-1.0); POTASSIUM 3.9 mmol/L (3.5-5.1)
[2021-06-01 08:00] VITALS: BP 98/56
--- NOTE | 2021-06-01 08:45 | NUR ---
sent updates to [facility] and [facility], still reviewing to see if can accept for skilled dc today.
[2021-06-01] MEDS ORDERED: LACTULOSE20 GM/30 M PO (11:36)
[2021-06-01] MEDS ORDERED: ENOXAPARIN40 MG/0.1 SUBQ (11:36)
[2021-06-01] MEDS ORDERED: HYDROXYZINE HCL25 M2 PO (11:36)
[2021-06-01] MEDS ORDERED: FOLIC ACID1 MG PO (11:36)
[2021-06-01] MEDS ORDERED: MIRALAX17 GM PO (11:36)
[2021-06-01] MEDS ORDERED: LIDOCAINE35.44 GM TOP (11:36)
[2021-06-01] MEDS ORDERED: SIMVASTATIN80 MG PO (11:36)
[2021-06-01] MEDS ORDERED: METHOCARBAMOL500 M2 PO (11:36)
[2021-06-01] MEDS ORDERED: ASPIRIN EC81 M1 PO (11:45)
[2021-06-01] MEDS ORDERED: HYDROCODON-ACE1 EAC7 PO (12:21)
--- NOTE | 2021-06-01 16:41 | NUR ---
PT DC'D TO IGNITE REPORT GIVEN TO SHELBY TONG. DRESSINGS TO BLE CHANGED AT APPROX 1530.
--- NOTE | 2021-06-09 13:42 | PLAN ---
[facility] [place] [address] REHAB UNIT PLAN OF CARE Name: RICARDA GARNER Room #: 511-P DIS IN M.R.#: [id number] Admission: 05/17/21 Attend Phys: Juan Bhatia MD Discharge: 06/01/21 Date of : 46 Report #: [id number] THIS REPORT FOR: cc: Neil Block MD, Scott C. MD Smithson, David G. MD ~ DATE OF SERVICE: 05/20/2021 PROGRESS NOTE/OVERALL PLAN OF CARE HISTORY OF PRESENT ILLNESS: The patient has been seen back earlier in followup. She is involved in inpatient rehabilitation. She has been working in therapies today to try to improve her strength and endurance. I saw her yesterday and both lower extremities were wrapped with her cellulitis. She has been in good spirits overall. Infectious disease is following as well as wound care. She does have multiple superficial ulcers on bilateral lower extremities. She is on cephalexin as per infectious disease. From a functional perspective, she was noted to make some progress with transfers, bed to wheelchair advancing to a mod assist level today utilizing the sliding board. She is nonambulatory. Bed mobility has been max assist; lower body dressing is dependent with upper body supervision. She does have moderate cognitive deficits and moderate to severe memory deficits. Speech therapy is also working with her on speech and language issues. ASSESSMENT: 1. Medical complexity with generalized debilitation. 2. Bilateral lower extremity cellulitis, methicillin-resistant Staphylococcus aureus with underlying chronic venous stasis. 3. Late effect cerebrovascular accident with residual left lower extremity weakness. 4. Hypertension. 5. Hyperlipidemia. 6. Anxiety disorder. PLAN: The overall plan of care is based on the pre-admission screening and information garnered from therapy assessments. 1. Estimated length of stay is probably 14-17 days, pending progress. 2. Medical prognosis is reasonably good. 3. Anticipated interventions includes the interdisciplinary acute inpatient rehabilitation program. 4. Anticipated functional outcomes would be for the patient to become modified independent with transfers, mobility and ADLs and to improve as far as cognition to hopefully return back to the home setting. 5. Discharge destination would be back where she lives at home. She used a walker for very short distances and a manual wheelchair for longer distances. I am uncertain if she is going to be able to return back to the home setting or [facility] [address] [place] [address] REHAB UNIT PLAN OF CARE Name: RICARDA GARNER Room #: 511-P [facility] IN M.R.#: [id number] Admission: 05/17/21 Attend Phys: Juan Bhatia MD Discharge: 06/01/21 Date of : 46 Report #: [id number] not, we will have to see how she does. 6. Expected therapy by discipline includes PT, OT and speech 1 hour per day, each 5 days a week throughout the duration of the acute inpatient rehabilitation stay. ADDENDUM: The patient's prognosis for significant practical improvement within a reasonable period of time appears good. Given the patient's complex medical condition and risk of further medical complication, rehabilitation services could not be safely provided at the lower level of care such as a nursing home facility. <ELECTRONICALLY SIGNED> By: Juan Bhatia MD 06/09/21 1342 [id number] [id number] Juan Bhatia MD /nt
== END 2021-06-01 16:42 | DRG 948 ==
PROVIDERS: Internal Medicine; Nurse Practitioner; ADMIT Physical Medicine & Rehabilitation; ATTEND Physical Medicine & Rehabilitation
DX: R53.81 Other malaise (principal); L03.116 Cellulitis of left lower limb; L03.115 Cellulitis of right lower limb; L97.929 Non-pressure chronic ulcer of unspecified part of left lower leg with unspecified severity; L97.919 Non-pressure chronic ulcer of unspecified part of right lower leg with unspecified severity; E44.1 Mild protein-calorie malnutrition; I69.354 Hemiplegia and hemiparesis following cerebral infarction affecting left non-dominant side; I87.2 Venous insufficiency (chronic) (peripheral); K59.00 Constipation, unspecified; E53.8 Deficiency of other specified B group vitamins; I10 Essential (primary) hypertension; E78.5 Hyperlipidemia, unspecified; Z20.822 Contact with and (suspected) exposure to COVID-19; B95.62 Methicillin resistant Staphylococcus aureus infection as the cause of diseases classified elsewhere; G31.84 Mild cognitive impairment of uncertain or unknown etiology; E03.9 Hypothyroidism, unspecified; F41.1 Generalized anxiety disorder; I48.91 Unspecified atrial fibrillation; I87.8 Other specified disorders of veins; Z68.26 Body mass index [BMI] 26.0-26.9, adult; Z79.01 Long term (current) use of anticoagulants; Z88.0 Allergy status to penicillin; Z91.013 Allergy to seafood; Z98.49 Cataract extraction status, unspecified eye; Z87.891 Personal history of nicotine dependence; Z23 Encounter for immunization
CPT/HCPCS: 10112